=== PATIENT | male | born 1985 | race Caucasian/White ===

== ENCOUNTER 2019-03-06 21:24 | Emergency (ER) | payer OTHER ==
[~2019-03-06] VITALS: Ht 182.9 cm; Wt 84.4 kg
[2019-03-06] MEDS ORDERED: ALBUTEROL2.5 MG/0.1 INH (21:31)
[2019-03-06] MEDS ORDERED: MINOCIN50 MG PO ×2 (21:32→21:33)
[2019-03-06] MEDS ORDERED: PROTONIX40 M1 PO (21:32)
[2019-03-06 21:59] LABS: ABSOLUTE NEUTROPHILS 6.7 thou/uL (1.4-8.2); BASOPHILS 0.5 % (0.0-2.0); EOSINOPHILS 4.2 % (0.0-3.0); HEMATOCRIT 43.7 % (42.0-52.0); HEMOGLOBIN 14.7 gm/dL (14.0-18.0); LYMPHOCYTES 23.5 % (24.0-44.0); MCH 30.7 pg (26.0-34.0); MCHC 33.7 g/dL (28.0-37.0); MCV 91.2 fL (80.0-100.0); MONOCYTES 5.3 % (1.0-8.0); PLATELET COUNT 260 thou/uL (150-400); POLYS 66.5 % (36.0-66.0); RBC 4.79 mil/uL (4.50-6.00); RDW 13.2 % (10.5-14.5)
[2019-03-06 22:03] LABS: ANION GAP 13 mmol/L (7-16); BUN 23 mg/dL (7-18); CHLORIDE 107 mmol/L (98-107); CO2 24 mmol/L (21-32); CREATININE 1.2 mg/dL (0.7-1.3); GLUCOSE 101 mg/dL (74-106); POTASSIUM 3.9 mmol/L (3.5-5.1); SODIUM 144 mmol/L (136-145)
[2019-03-06 22:10] LABS: ALBUMIN 3.9 g/dL (3.4-5.0); DIRECT BILIRUBIN < 0.1 mg/dL (<0.1-0.3); SGOT 25 U/L (15-37); SGPT 42 U/L (30-65); TOTAL BILIRUBIN 0.2 mg/dL (<0.1-1.0); TOTAL PROTEIN 7.5 g/dL (6.4-8.2)
[2019-03-06 22:25] LABS: URINE BILIRUBIN NEGATIVE (Negative); URINE BLOOD NEGATIVE (Negative); URINE CLARITY CLEAR; URINE COLOR YELLOW; URINE GLUCOSE-RANDOM* NEGATIVE (Negative); URINE KETONES NEGATIVE (Negative); URINE LEUKOCYTES-REFLEX NEGATIVE (Negative); URINE NITRITE-REFLEX NEGATIVE (Negative); URINE PROTEIN (DIPSTICK) NEGATIVE (Negative); URINE SPECIFIC GRAVITY >= 1.030 (1.005-1.035); URINE UROBILINOGEN 0.2 E.U./dl (0.2-1.0)
[2019-03-07 00:04] VITALS: BP 119/62
== END 2019-03-07 00:05 | disposition home or self-care (01) ==
LOC: ER 21:24
PROVIDERS: Emergency Medicine
DX: T67.5XXA Heat exhaustion, unspecified, initial encounter (principal); R42 Dizziness and giddiness; J45.909 Unspecified asthma, uncomplicated; K21.9 Gastro-esophageal reflux disease without esophagitis; F17.210 Nicotine dependence, cigarettes, uncomplicated; Z98.890 Other specified postprocedural states; Z88.2 Allergy status to sulfonamides; Y92.89 Other specified places as the place of occurrence of the external cause